=== PATIENT | female | born 1985 | race Caucasian/White ===

== ENCOUNTER 2021-09-09 14:52 | Emergency (ER) | payer MEDICAID, OTHER ==
[~2021-09-09] VITALS: Ht 157.5 cm; Wt 114.8 kg
--- NOTE | 2021-09-09 15:23 | NUR ---
PT IS IN ROOM #2A. DR LIZAMA EVALUATED THE PT.
[2021-09-09] MEDS ORDERED: KETOROLAC TROMETHAMINE 60 MG INJ IM ONE ×2 (16:00→16:14)
[2021-09-09] MEDS ORDERED: DIAZEPAM 2 MG TABLET PO ONE (16:00)
[2021-09-09] MEDS ORDERED: DIAZEPAM 10 MG/2 ML DISP.SYRIN ONE (16:13)
[2021-09-09] MEDS ORDERED: DIAZEPAM 10 MG/2 ML DISP.SYRIN IM ONE (16:15)
[2021-09-09] MEDS ORDERED: MORPHINE SULFATE 4 MG/1 ML DISP.SYRIN IM ONE (17:15)
[2021-09-09] MEDS ORDERED: MORPHINE SULFATE 4 MG/1 ML DISP.SYRIN ONE (17:24)
[2021-09-09 17:41] LABS: HEMATOCRIT 39.6 % (31.2-41.9); MEAN CORPUSCULAR HEMOGLOBIN 31.2 uug (24.7-32.8); MEAN CORPUSCULAR VOLUME 90.5 fL (75.5-95.3); PLATELET COUNT (AUTO) 337 K/uL (179-408)
[2021-09-09 17:43] LABS: CREATININE 0.8 mg/dL (0.6-1.3); POTASSIUM 4.1 mmol/L (3.5-5.1)
[2021-09-09 17:49] LABS: BILIRUBIN,DIRECT 0.1 mg/dL (0.0-0.2); BILIRUBIN,TOTAL 0.3 mg/dL (0.2-1.0); TOTAL PROTEIN, SERUM 8.7 g/dL (6.4-8.2)
[2021-09-09 18:49] LABS: *BILIRUBIN,URIN NEGATIVE (NEGATIVE); *BLOOD, URINE 2+ (NEGATIVE); *CLARITY,URINE CLEAR (CLEAR); *COLOR,URINE YELLOW (YELLOW); *KETONES,URINE NEGATIVE (NEGATIVE); *UROBILINOGEN,URINE 0.2 E.U./dl (NORMAL); LEUKOCYTE ESTERASE ,URINE NEGATIVE (NEGATIVE); NITRITE, URINE NEGATIVE (NEGATIVE); PH,URINE 5.5 (5.0-8.0); UGLUCOSE NEGATIVE (NEGATIVE)
[2021-09-09 18:57] LABS: BACTERIA,URINE FEW /HPF (NONE SEEN); SQUAMOUS EPITHELIAL CELL,UR MODERATE /HPF (NONE SEEN); WBC,URINE 0-3 /HPF (0-3)
[2021-09-09 18:58] LABS: *URINE HCG, QUAL NEGATIVE (NEGATIVE); RED BLOOD CELL CASTS,URINE FEW /LPF (NONE SEEN)
--- NOTE | 2021-09-09 19:12 | NUR ---
REPORT GIVEN TO TAMALE MAKER GORDO COHEN.
[2021-09-09] MEDS ORDERED: OXYC-128 PO (20:05)
[2021-09-09] MEDS ORDERED: OXYCODONE/APAP 5-325 MG TABLET PO ONE (20:30)
[2021-09-09] MEDS ORDERED: OXYCODONE/APAP 5-325 MG TABLET ONE (20:46)
--- NOTE | 2021-09-09 21:00 | NUR ---
Patient discharged to home in stable condition. Written and verbal after care instructions given. Patient verbalizes understanding of instructions. Stressed follow up or return to ER for worsening s/s.
[2021-09-09 21:08] VITALS: BP 122/71
== END 2021-09-09 21:09 | disposition home or self-care (01) ==
LOC: ER 14:52
DX: M54.89 Other dorsalgia (principal); E03.9 Hypothyroidism, unspecified; Z88.0 Allergy status to penicillin
CPT/HCPCS: 36415; 80048; 80076; 81001; 84702; 84703; 85025; 96372 ×2; 99284; J1885; J2270; J3360; A4663